=== PATIENT | male | born 1950 | race Caucasian/White ===

== ENCOUNTER 2020-09-29 10:08 | Outpatient (CLI) | payer MEDICARE ==
[2020-09-29] VITALS (21 sets, daily range): BP systolic 98–171; BP diastolic 43–115
== END 2020-09-29 23:59 | disposition home or self-care (01) ==
LOC: CARD DIAG 10:08
PROVIDERS: ATTEND Internal Medicine Cardiovascular Disease
DX: R55 Syncope and collapse (principal)
CPT/HCPCS: 93660